=== PATIENT | female | born 1980 | race Caucasian/White ===

== ENCOUNTER 2017-07-22 18:03 | Outpatient (CLI) | payer MEDICAID ==
[2017-07-22 21:42] LABS: ADD UMIC YES; UR ASCORBIC ACID NEGATIVE (NEGATIVE); UR BACTERIA FEW /HPF (NONE SEEN); UR BILIRUBIN (Dip) NEGATIVE (NEGATIVE); UR BLOOD (Dip) NEGATIVE (NEGATIVE); UR CLARITY CLEAR (CLEAR); UR COLOR YELLOW (YELLOW); UR GLUCOSE (Dip) NEGATIVE (NEGATIVE); UR KETONES (Dip) NEGATIVE (NEGATIVE); UR LEUKOCYTE ESTERASE (Dip) 2+ Leu/ul (NEGATIVE); UR NITRITE (Dip) NEGATIVE (NEGATIVE); UR RBC 1 /HPF (0-5); UR SQUAMOUS EPITHELIAL CELL FEW /HPF (FEW); UR TOTAL PROTEIN (Dip) NEGATIVE (NEGATIVE); UR UROBILINOGEN (Dip) NEGATIVE (NEGATIVE); UR WBC 2 /HPF (0-5)
== END 2017-07-22 23:11 | disposition home or self-care (01) ==
LOC: OBT 18:03 → L-D 18:04 → OBT 23:11
DX: O26.893 Other specified pregnancy related conditions, third trimester (principal); M54.9 Dorsalgia, unspecified; R10.2 Pelvic and perineal pain; Z3A.34 34 weeks gestation of pregnancy
CPT/HCPCS: 76815; 76817; 76818; 81001

== ENCOUNTER 2017-08-26 01:06 | Inpatient (IN) | payer MEDICAID ==
[2017-08-26] MEDS ORDERED: MISOPROSTOL 200 MCG TAB PR ×2 (03:00→04:00)
[2017-08-26] MEDS ORDERED: METHYLERGONOVINE 0.2 MG INJ IM ×2 (03:00→04:00)
[2017-08-26] MEDS ORDERED: BUTORPHANOL 1 MG INJ IV (03:00)
[2017-08-26] MEDS ORDERED: CARBOPROST 250 MCG INJ IM ×2 (03:00→04:00)
[2017-08-26] MEDS ORDERED: LIDOCAINE 1% (MPF) 30 ML INJ INJ (03:00)
[2017-08-26] MEDS ORDERED: BUTORPHANOL 2 MG INJ IV (03:00)
[2017-08-26] MEDS ORDERED: HYDROCODONE/APAP (5/325) TAB PO (03:00)
[2017-08-26] MEDS ORDERED: OXYTOCIN 30 UNITS/LR 500 ML IV ×2 (03:00→04:00)
[2017-08-26 03:01] LABS: ADD MAN DIFF? NO
[2017-08-26 03:06] LABS: BASOPHILS % 0.3 % (0.0-2.0); EOSINOPHILS % 0.6 % (0.0-7.0); HEMATOCRIT 33.7 % (37.0-47.0); HEMOGLOBIN 11.3 g/dl (12.0-16.0); LYMPHOCYTES # 1.8 10^3/ul (0.8-2.9); LYMPHOCYTES % 26.1 % (15.0-51.0); MEAN CORPUSCULAR HEMOGLOBIN 29.4 pg (29.0-33.0); MEAN CORPUSCULAR HGB CONC 33.5 g/dl (32.0-37.0); MEAN CORPUSCULAR VOLUME 87.8 fl (82.0-101.0); MEAN PLATELET VOLUME 11.9 fl (7.4-10.4); MONOCYTE # 0.5 10^3/ul (0.3-0.9); MONOCYTES % 7.1 % (0.0-11.0); NEUTROPHIL # 4.6 10^3/ul (1.6-7.5); NEUTROPHILS % 65.6 % (39.0-77.0); PLATELET COUNT 146 10^3/UL (140-415); RED BLOOD COUNT 3.84 10^6/ul (4.20-5.40); RED CELL DISTRIBUTION WIDTH 13.8 % (11.5-14.5)
[2017-08-26] MEDS: LACTATED RINGER'S 1,000 ML IV (03:16)
[2017-08-26 03:17] LABS: ADD UMIC YES; UR ASCORBIC ACID NEGATIVE (NEGATIVE); UR BACTERIA FEW /HPF (NONE SEEN); UR BILIRUBIN (Dip) NEGATIVE (NEGATIVE); UR BLOOD (Dip) 2+ mg/dL (NEGATIVE); UR CLARITY CLEAR (CLEAR); UR COLOR STRAW (YELLOW); UR GLUCOSE (Dip) NEGATIVE (NEGATIVE); UR KETONES (Dip) NEGATIVE (NEGATIVE); UR LEUKOCYTE ESTERASE (Dip) 1+ Leu/ul (NEGATIVE); UR NITRITE (Dip) NEGATIVE (NEGATIVE); UR RBC 2 /HPF (0-5); UR SPECIFIC GRAVITY (Dip) 1.008 (1.003-1.030); UR TOTAL PROTEIN (Dip) NEGATIVE (NEGATIVE); UR UROBILINOGEN (Dip) NEGATIVE (NEGATIVE); UR WBC 7 /HPF (0-5)
[2017-08-26] MEDS: MINERAL OIL 30ML CUP PO (03:29)
[2017-08-26] MEDS: OXYTOCIN 30 UNITS/LR 500 ML IV ×4 (03:29→08:05)
[2017-08-26 03:31] LABS: INR 0.93; PROTIME 12.6 Sec (11.9-14.9)
[2017-08-26 03:32] LABS: PARTIAL THROMBOPLASTIN TIME 29.7 Sec (25.0-35.0)
[2017-08-26] MEDS: LACTATED RINGER'S 1,000 ML IV* ×3 (03:40→21:17)
[2017-08-26] MEDS: IBUPROFEN 600 MG TAB PO ×5 (03:45→23:19)
[2017-08-26 04:57] LABS: HIV 1&2 ANTIBODY NEGATIVE (NEGATIVE)
[2017-08-26] MEDS: HYDROCODONE/APAP (5/325) TAB PO (05:45)
[2017-08-26] MEDS: BENZOCAINE 20% 56 ML SPRAY TOP (05:46)
[2017-08-26] MEDS: LANOLIN 7 GM TUBE TOP (05:46)
[2017-08-26] MEDS: MEASLES,MUMPS,RUBELLA VACCINE INJ SC* (12:00)
[2017-08-26 23:26] LABS: RAPID PLASMA REAGIN NONREACTIVE (NR)
[2017-08-27] MEDS: HYDROCODONE/APAP (5/325) TAB PO (03:27)
[2017-08-27] MEDS: LACTATED RINGER'S 1,000 ML IV* (03:40)
[2017-08-27] MEDS: IBUPROFEN 600 MG TAB PO ×4 (06:00→23:50)
[2017-08-27 09:36] LABS: ADD MAN DIFF? NO
[2017-08-27 09:39] LABS: WHITE BLOOD COUNT 6.4 10^3/ul (4.8-10.8)
[2017-08-27 09:39] LABS: BASOPHILS % 0.3 % (0.0-2.0); EOSINOPHILS # 0.1 10^3/ul (0.0-0.5); EOSINOPHILS % 1.3 % (0.0-7.0); HEMATOCRIT 29.3 % (37.0-47.0); HEMOGLOBIN 9.7 g/dl (12.0-16.0); LYMPHOCYTES % 30.7 % (15.0-51.0); MEAN CORPUSCULAR HGB CONC 33.1 g/dl (32.0-37.0); MEAN CORPUSCULAR VOLUME 90.7 fl (82.0-101.0); MEAN PLATELET VOLUME 11.6 fl (7.4-10.4); MONOCYTE # 0.3 10^3/ul (0.3-0.9); MONOCYTES % 5.3 % (0.0-11.0); NEUTROPHIL # 3.9 10^3/ul (1.6-7.5); NEUTROPHILS % 61.9 % (39.0-77.0); PLATELET COUNT 133 10^3/UL (140-415); RED BLOOD COUNT 3.23 10^6/ul (4.20-5.40); RED CELL DISTRIBUTION WIDTH 14.1 % (11.5-14.5)
[2017-08-27 09:41] LABS: POSITIVE DIFF @See below
[2017-08-28] MEDS: IBUPROFEN 600 MG TAB PO ×2 (05:33→12:44)
[2017-08-28] MEDS: DIPHTH/TET/ACEL PERTUSS (ADULT) 0.5 ML VIAL IM* (09:00)
== END 2017-08-28 16:17 | disposition home or self-care (01) | DRG 775 ==
LOC: OBT 01:06 → L-D 01:07 → OBT 02:10 → L-D 02:11 → PP1 05:32
PROC: 10E0XZZ Delivery of Products of Conception, External Approach (ICD-10-PCS; principal; 2017-08-26)
PROC: 0HQ9XZZ Repair Perineum Skin, External Approach (ICD-10-PCS; 2017-08-26)
PROC: 4A1HXCZ Monitoring of Products of Conception, Cardiac Rate, External Approach (ICD-10-PCS; 2017-08-26)
DX: O70.0 First degree perineal laceration during delivery (principal); O69.81X0 Labor and delivery complicated by cord around neck, without compression, not applicable or unspecified; Z3A.39 39 weeks gestation of pregnancy; Z37.0 Single live birth
CPT/HCPCS: 36415; 81001; 85025; 85610; 85730; 86592; 86703; 86850; 86900; 86901; 87086; 90715; 99464